=== PATIENT | female | born 1935 | race Caucasian/White ===

== ENCOUNTER 2019-12-22 10:40 | Emergency (ER) | payer MEDICARE, BC ==
--- NOTE | 2019-12-22 11:16 | EDM.PDOC ---
ED HPI GENERAL MEDICAL PROBLEM - General Chief Complaint: Lower Extremity Injury/Pain Stated Complaint: BUMPED RIGHT LEG Time Seen by Provider: 12/22/19 11:12 Source of Information: Reports: Patient History Limitations: Reports: No Limitations - History of Present Illness INITIAL COMMENTS - FREE TEXT/NARRATIVE: 84 yo female with with pain in the right herbert x 1 week. This started after a minor trauma. Pain is worse at night. 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 ED EXAM, GENERAL - Physical Exam Exam: See Below Free Text/Narrative:: Tender area on the anterior right leg. Mild ecchymosis. Extensive varicosities Exam Limited By: No Limitations General Appearance: Alert, WD/WN Course - Vital Signs Last Recorded V/S: Last Vital Signs Temp 97.9 F 12/22/19 10:55 Pulse 80 12/22/19 10:55 Resp 16 12/22/19 10:55 BP 137/32 L 12/22/19 10:55 Pulse Ox 98 12/22/19 10:55 Departure - Departure Time of Disposition: 11:15 Disposition: Home, Self-Care 01 Condition: Good Clinical Impression: Superficial thrombophlebitis - Discharge Information Instructions: Thrombophlebitis Referrals: Ankit Roman MD [Primary Care Provider] - (PRN ) Forms: ED Department Discharge Sepsis Event Note (ED) - Evaluation Sepsis Screening Result: No Definite Risk - Focused Exam Vital Signs: Vital Signs Temp Pulse Resp BP Pulse Ox 12/22/19 10:55 97.9 F 80 16 137/32 L 98 - Problem List & Annotations (1) Superficial thrombophlebitis SNOMED Code(s): 8333736 Code(s): I80.9 - PHLEBITIS AND THROMBOPHLEBITIS OF UNSPECIFIED SITE Status: Acute Current Visit: Yes Qualifiers: Superficial thrombophlebitis-Involved body area: lower extremity Laterality: right Qualified Code(s): I80.01 - Phlebitis and thrombophlebitis of superficial vessels of right lower extremity - Problem List Review Problem List Initiated/Reviewed/Updated: Yes - My Orders Last 24 Hours: NSAIDs,Warm cmpress,compression stockings. Elevation
== END 2019-12-22 11:15 | disposition home or self-care (01) ==
LOC: FB.ED 10:40
DX: S80.11XA Contusion of right lower leg, initial encounter (principal); I80.01 Phlebitis and thrombophlebitis of superficial vessels of right lower extremity; M19.90 Unspecified osteoarthritis, unspecified site; Z79.82 Long term (current) use of aspirin; W22.8XXA Striking against or struck by other objects, initial encounter
CPT/HCPCS: 99283